=== PATIENT | female | born 1960 | race Caucasian/White ===

== ENCOUNTER 2017-05-16 20:40 | Emergency (ER) | payer OTHER ==
[2017-05-16] MEDS ORDERED: ONDANSETRON 4 MG/2 ML VIAL IVP STA ×2 (21:19→22:44)
[2017-05-16 21:24] LABS: BASOPHILS # (AUTO) 0.1 10^3/uL (0.0-0.1); BASOPHILS % (AUTO) 0.6 %; EOSINOPHILS % (AUTO) 0.2 %; HGB - HEMOGLOBIN 14.2 g/dL (12.0-16.0); LYMPHOCYTES % (AUTO) 10.3 %; MEAN CORPUSCULAR HEMOGLOBIN 28.6 pg (27.0-31.0); MEAN CORPUSCULAR HGB CONC 32.8 g/dL (32.0-36.0); MEAN CORPUSCULAR VOLUME 87.2 fL (81.0-99.0); MEAN PLATELET VOLUME 8.7 fL (7.9-10.8); MONOCYTES # (AUTO) 0.6 10^3/uL (0.0-1.0); MONOCYTES % (AUTO) 5.6 %; NEUTROPHILS # (AUTO) 8.2 10^3/uL (1.5-6.6); NEUTROPHILS % (AUTO) 83.3 %; PLT - PLATELET COUNT 233 10^3/uL (130-450); RED BLOOD COUNT 4.96 10^6/uL (4.20-5.40); RED CELL DISTRIBUTION WIDTH 14.2 % (12.0-15.0); WHITE BLOOD COUNT 9.8 x10^3/uL (4.8-10.8)
[2017-05-16 21:37] LABS: ALBUMIN 4.9 g/dL (3.2-5.5); BILIRUBIN,TOTAL 0.7 mg/dL (0.2-1.0); CALCIUM 9.3 mg/dL (8.5-10.3); CREATININE 0.6 mg/dL (0.4-1.0); TOTAL PROTEIN 7.3 g/dL (6.7-8.2)
[2017-05-16 21:38] LABS: BILIRUBIN,URINE NEGATIVE (NEGATIVE); GLUCOSE, URINE (UA) NEGATIVE (NEGATIVE); KETONES,URINE (UA) 40 mg/dL (NEGATIVE); LEUKOCYTE ESTERASE, URINE TRACE (NEGATIVE); NITRITE,URINE NEGATIVE (NEGATIVE); OCCULT BLOOD,URINE NEGATIVE (NEGATIVE); PH,URINE 7.5 PH (5.0-7.5); PROTEIN,URINE NEGATIVE (NEGATIVE); UROBILINOGEN,URINE 0.2 (NORMAL) E.U./dL (NORMAL)
[2017-05-16 21:39] LABS: CLARITY,URINE CLEAR (CLEAR)
[2017-05-16 21:47] LABS: BACTERIA,URINE None Seen /HPF (None Seen); RBC,URINE 0-5 /HPF (0-5); SQUAMOUS EPITHELIAL CELL,UR FEW Squamous (<= Few)
[2017-05-16] MEDS ORDERED: SODIUM CHLORIDE 0.9% 1,000 ML IV ONE (22:21)
[2017-05-16] MEDS ORDERED: MORPHINE 2 MG/ML CARPUJECT IVP STA (22:21)
[2017-05-16] MEDS ORDERED: IOPAMIDOL-300 100 ML VIAL ONE (22:32)
[2017-05-16] MEDS ORDERED: IOPAMIDOL-300 100 ML VIAL IVP ONE (22:48)
--- NOTE | 2017-05-16 23:27 | CT Report ---
EXAM: CT ABDOMEN AND PELVIS EXAM DATE: 05/16/2017 11:02 PM. CLINICAL HISTORY: Epigastric and ruq pain, . COMPARISONS: None. TECHNIQUE: Routine helical CT imaging was performed through the abdomen and pelvis. IV contrast: 100M L ISOVUE 300. Enteric contrast: No. Reconstructions: Coronal and sagittal. In accordance with CT protocol optimization, one or more of the following dose reduction techniques w ere utilized for this exam: automated exposure control, adjustment of mA and/or KV based on patient s ize, or use of iterative reconstructive technique. FINDINGS: Lung Bases: Unremarkable. Liver: Several hypodensities scattered throughout the liver measuring up to 1 cm. Gallbladder/Bile Ducts: Unremarkable. Spleen: Normal. Pancreas: Normal. Adrenal Glands: Normal. Kidneys: There is a 1.3 cm right renal cyst with a central slightly irregular septation. The cyst dem onstrates an attenuation value of 83 Hounsfield units. Left kidney is normal. No hydronephrosis. Peritoneal Cavity/Bowel: Normal. No free fluid, free air or adenopathy. No masses or acute inflammato ry process. There is a large volume of stool throughout the colon. No small bowel obstruction. No elizabeth e air or fluid collections. Pelvic Organs: There is a heterogeneous 9.5 x 10.1 x 10.5 cm midline pelvic mass. The mass contains p eripheral septations and calcifications. No normal uterus visualized. There is a right adnexal mass m easuring 5.5 x 2.9 cm. No fluid collections. No pelvic lymphadenopathy. The urinary bladder is unrema rkable. Vasculature: No aneurysms or other significant abnormality. Bones: No significant abnormality. Other: None. IMPRESSION: 1. Solid-appearing, heterogeneous pelvic masses possibly secondary to uterine fibroids. No normal te-moak debbie or ovaries visualized. Correlation with pelvic ultrasound for further characterization is recomme nded. 2. Increased stool burden throughout colon suggesting constipation. 3. Complex right renal cyst, sonographic correlation recommended. This may be performed at time of pe lvic ultrasound. 4. No right upper quadrant inflammatory changes. [facility] Referring Provider Line: [phone] SITE ID: [id number]
[2017-05-16 23:31] VITALS: BP 125/70
[2017-05-16] MEDS ORDERED: ONDANSETRON ODT 4 MG Prepack 2 TL STA (23:43)
[2017-05-16] MEDS ORDERED: oxyCODONE/ACET 5/325 Prepack 4 PO STA (23:43)
[2017-05-16] MEDS ORDERED: DICYCLOMINE 10 MG CAPSULE PO STA (23:43)
--- NOTE | 2017-05-16 23:43 | ED Physician Documentation ---
PD HPI NVD - Stated complaint Stated Complaint: VOMITING/CHILLS - Chief complaint Chief Complaint: Abd Pain - History obtained from History obtained from: Patient, Family - History of Present Illness Timing - onset: Today Timing - details: Gradual onset, Still present Associated symptoms: Abdominal pain Contributing factors: No: Sick contact, Bad food, Travel, Recent antibiotics Similar symptoms before: Has not had sx before Recently seen: Not recently seen - Additonal information Additional information: Patient is a 57 year old female who is presenting to the emergency department for abdominal pain, nausea, vomiting. 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 patient stated that it was sharp epigastric and right upper quadrant pain. patient reports that she has been unable to keep anything down all day. 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 Review of Systems Constitutional: reports: Fever, Chills Eyes: reports: Reviewed and negative Ears: reports: Reviewed and negative Nose: denies: Rhinorrhea / runny nose, Congestion Throat: denies: Sore throat Cardiac: denies: Chest pain / pressure, Palpitations Respiratory: denies: Cough, Wheezing GI: reports: Abdominal Pain, Nausea, Vomiting, Diarrhea : denies: Dysuria, Frequency, Hesitancy Skin: denies: Rash Musculoskeletal: denies: Back pain Neurologic: reports: Generalized weakness. denies: Focal weakness, Numbness Immunocompromised: denies: Immunocompromised PD PAST MEDICAL HISTORY - Past Medical History Past Medical History: Yes Neuro: Headache/migraine GI: Ulcers - Past Surgical History Past Surgical History: Yes HEENT: Tonsil/Adenoidectomy - Present Medications Home Medications: Ambulatory Orders Medication Instructions Recorded Confirmed Ascorbic Acid [Vitamin C] 1 tab PO DAILY 05/16/17 05/16/17 Dicyclomine [Bentyl] 10 mg PO QID #14 capsule 05/16/17 Ondansetron Odt [Zofran] 4 mg TL Q6H PRN #14 tablet 05/16/17 - Allergies Allergies/Adverse Reactions: Allergies Allergy/AdvReac Type Severity Reaction Status Date / Time No Known Drug Allergies Allergy Verified 05/16/17 21:00 - Social History Does the pt smoke?: No Smoking Status: Never smoker Does the pt drink ETOH?: Yes Does the pt have substance abuse?: No - POLST Patient has POLST: No PD ED PE NORMAL - Vitals Vital signs reviewed: Yes - General General: Alert and oriented X 3 - HEENT HEENT: Atraumatic, PERRL - Neck Neck: Supple, no meningeal sign - Cardiac Cardiac: RRR, No murmur - Respiratory Respiratory: No respiratory distress - Derm Derm: Normal color, Warm and dry, No rash - Extremities Extremities: No deformity, No edema - Neuro Neuro: Alert and oriented X 3, No motor deficit, No sensory deficit, Normal speech - Psych Psych: Normal mood PD ED PE EXPANDED - General General: In Pain - HEENT HEENT: Dry mucous membranes - Abdomen Abdomen: Tender to palpation, Guarding, RUQ, Epigastric, Generalized/diffuse. No: Rebound Results - Vitals Vitals: Vital Signs - 24 hr 05/16/17 05/16/17 20:51 23:29 Temperature 36.9 C 36.7 C Heart Rate 60 53 L Respiratory 18 18 Rate Blood Pressure 133/94 H 125/70 O2 Saturation 100 98 Oxygen O2 Source Room air - Labs Labs: Laboratory Tests 05/16/17 05/16/17 05/16/17 21:15 21:15 21:30 WBC 9.8 RBC 4.96 Hgb 14.2 Hct 43.3 MCV 87.2 MCH 28.6 MCHC 32.8 RDW 14.2 Plt Count 233 MPV 8.7 Neut # 8.2 H Lymph # 1.0 L [place] # 0.6 Eos # 0.0 Baso # 0.1 Absolute Nucleated RBC 0.00 Nucleated RBC % 0.0 Sodium 134 L Potassium 3.2 L Chloride 97 L Carbon Dioxide 23 Anion Gap 14.0 H BUN 10 Creatinine 0.6 Estimated GFR (MDRD) 102 Glucose 146 H Calcium 9.3 Total Bilirubin 0.7 AST 25 ALT 25 Alkaline Phosphatase 37 L Total Protein 7.3 Albumin 4.9 Globulin 2.4 Albumin/Globulin Ratio 2.0 Lipase 22 Urine Color YELLOW Urine Clarity CLEAR Urine pH 7.5 Ur Specific [place] 1.010 Urine Protein NEGATIVE Urine Glucose (UA) NEGATIVE Urine Ketones 40 H Urine Occult Blood NEGATIVE Urine Nitrite NEGATIVE Urine Bilirubin NEGATIVE Urine Urobilinogen 0.2 (NORMAL) Ur Leukocyte Esterase TRACE H Urine RBC 0-5 Urine WBC 6-10 H Ur Squamous Epith Cells FEW Squamous Urine Bacteria None Seen Ur Microscopic Review INDICATED Urine Culture Comments INDICATED - Rads (name of study) ct abdomen and pelvis Radiology: Final report received (acute intraabdominal pathology) PD MEDICAL DECISION MAKING - ED course Complexity details: reviewed old records, reviewed results, re-evaluated patient , considered differential, d/w patient, d/w family ED course: patient was seen and examined at bedside. IV access was gained and labs were drawn. patient was treated with iv fluids, zofran and morphine for pain. Imaging was ordered due to the severity of patient's symptoms. When patient returned from imaging the results were reviewed. there was no acute significant abnormality. patient and family were made aware of the findings and follow up instructions. patient required no further work up and was stable for discharge with outpatiennt follow up. Departure - Departure Disposition: Home, Self Care Clinical Impression: Gastroenteritis Condition: Stable Instructions: ED Gastroenteritis Viral Follow-Up: Karri York MD [Primary Care Provider] - Within 3 Days Prescriptions: Dicyclomine [Bentyl] 10 mg PO QID #14 capsule Ondansetron Odt [Zofran] 4 mg TL Q6H PRN #14 tablet PRN Reason: Nausea / Vomiting Comments: Your diagnostics today are within normal limits. It is likely viral in nature and should get better over the next few days. The most important thing is to stay hydrated. You should double your fluid intake and include gatorade or other electrolyte solution. You should follow up with your doctor if your symptoms persist through the weekend. Forms: Activity restrictions Discharge Date/Time: 05/17/17 00:07
== END 2017-05-17 00:07 | disposition home or self-care (01) ==
LOC: ED 20:40
DX: K52.9 Noninfective gastroenteritis and colitis, unspecified (principal); Z87.11 Personal history of peptic ulcer disease
CPT/HCPCS: 74177; 80053; 81001; 81003; 83690; 85025; 87086; 99283

== ENCOUNTER 2017-05-17 17:37 | Observation (INO) | payer OTHER ==
--- NOTE | 2017-05-17 17:51 | ED Physician Documentation ---
PD HPI NVD - Stated complaint Stated Complaint: ABD PX/VOM - Chief complaint Chief Complaint: Abd Pain - History obtained from History obtained from: Patient, Family (spouse) - History of Present Illness Timing - onset: How many days ago (3) Timing - duration: Days (3) Timing - details: Abrupt onset, Still present, Waxing and waning Associated symptoms: Abdominal pain. No: Fever, Hematemesis, Melena Contributing factors: No: Sick contact, Bad food, Travel, Recent antibiotics, Alcohol use Worsened by: Eating (even small sips of water causes nausea and increased pain today.) Similar symptoms before: Has not had sx before Recently seen: Emergency Dept (seen yesterday in ED for this and was improved with IV fluids and meds, had normal labs and Abd CT. However pain was still there some and increased with oral intake soon after discharged home.) Review of Systems Constitutional: denies: Fever, Chills, Myalgias Nose: denies: Rhinorrhea / runny nose, Congestion Throat: denies: Sore throat Cardiac: denies: Chest pain / pressure Respiratory: denies: Dyspnea, Cough GI: reports: Abdominal Pain (upper abd/RUQ area), Nausea, Vomiting. denies: Abdominal Swelling, Constipation, Diarrhea, Hematemesis, Bloody / black stool : denies: Dysuria, Frequency Skin: denies: Rash, Lesions Musculoskeletal: denies: Neck pain, Back pain, Extremity pain Neurologic: reports: Generalized weakness. denies: Focal weakness, Numbness, Near syncope Psychiatric: denies: Depressed Endocrine: denies: Polydypsia, Polyuria, Weight loss, Weight gain, Easy bruising / bleeding Immunocompromised: denies: Immunocompromised PD PAST MEDICAL HISTORY - Past Medical History Neuro: Headache/migraine GI: Ulcers - Past Surgical History Past Surgical History: Yes HEENT: Tonsil/Adenoidectomy - Present Medications Home Medications: Ambulatory Orders Medication Instructions Recorded Confirmed Ascorbic Acid [Vitamin C] 1 tab PO DAILY 05/16/17 05/17/17 Dicyclomine [Bentyl] 10 mg PO QID #14 capsule 05/16/17 05/17/17 Ondansetron Odt [Zofran] 4 mg TL Q6H PRN #14 tablet 05/16/17 05/17/17 - Allergies Allergies/Adverse Reactions: Allergies Allergy/AdvReac Type Severity Reaction Status Date / Time No Known Drug Allergies Allergy Verified 05/17/17 17:45 - Social History Does the pt smoke?: No Smoking Status: Never smoker Does the pt drink ETOH?: Yes Does the pt have substance abuse?: No - Family History Family history: reports: Non contributory - POLST Patient has POLST: No PD ED PE NORMAL - Vitals Vital signs reviewed: Yes - General General: Alert and oriented X 3, Well developed/nourished - HEENT HEENT: PERRL, EOMI (nonicteric), Pharynx benign. No: Moist mucous membranes - Neck Neck: Supple, no meningeal sign, No adenopathy - Cardiac Cardiac: RRR, No murmur - Respiratory Respiratory: Clear bilaterally - Abdomen Abdomen: Soft, Non distended, No organomegaly, Other (tender with guarding RUQ area. Decreased bowel sounds. ) - Female Female : Deferred - Rectal Rectal: Deferred - Back Back: No CVA TTP - Derm Derm: Normal color, Warm and dry, No rash - Extremities Extremities: No deformity, No tenderness to palpate, Normal ROM s pain, No edema , No calf tenderness / cord - Neuro Neuro: Alert and oriented X 3, No motor deficit, No sensory deficit Results - Vitals Vitals: Vital Signs - 24 hr 05/17/17 05/17/17 05/17/17 17:41 19:10 19:43 Temperature 37.0 C Heart Rate 57 L 54 L 88 Respiratory 16 16 18 Rate Blood Pressure 144/69 H 134/87 H 147/82 H O2 Saturation 100 100 99 05/17/17 05/17/17 05/17/17 20:32 22:06 23:26 Temperature Heart Rate 72 65 66 Respiratory 16 16 16 Rate Blood Pressure 110/74 109/82 H 106/66 O2 Saturation 97 98 95 05/17/17 23:41 Temperature Heart Rate 75 Respiratory 16 Rate Blood Pressure 105/65 O2 Saturation 99 Oxygen O2 Source Room air - Labs Labs: Laboratory Tests 05/17/17 05/17/17 05/17/17 17:50 20:32 20:32 WBC 7.5 RBC 4.37 Hgb 12.5 Hct 37.9 MCV 86.7 MCH 28.7 MCHC 33.1 RDW 14.0 Plt Count 187 MPV 8.5 Neut # 6.1 Lymph # 0.9 L [place] # 0.5 Eos # 0.0 Baso # 0.0 Absolute Nucleated RBC 0.00 Nucleated RBC % 0.0 Sodium 136 Potassium 3.7 Chloride 103 Carbon Dioxide 22 Anion Gap 11.0 BUN 8 Creatinine 0.5 Estimated GFR (MDRD) 126 Glucose 117 H POC Whole Bld Glucose 94 Calcium 8.6 Total Bilirubin 0.6 AST 18 ALT 21 Alkaline Phosphatase 28 L Troponin I Total Protein 6.1 L Albumin 4.0 Globulin 2.1 Albumin/Globulin Ratio 1.9 Lipase 33 05/17/17 20:32 WBC RBC Hgb Hct MCV MCH MCHC RDW Plt Count MPV Neut # Lymph # [place] # Eos # Baso # Absolute Nucleated RBC Nucleated RBC % Sodium Potassium Chloride Carbon Dioxide Anion Gap BUN Creatinine Estimated GFR (MDRD) Glucose POC Whole Bld Glucose Calcium Total Bilirubin AST ALT Alkaline Phosphatase Troponin I < 0.04 Total Protein Albumin Globulin Albumin/Globulin Ratio Lipase - Rads (name of study) RUQ U/S Radiology: Prelim report reviewed (no acute process seen. Normal gallbladder. ) PD MEDICAL DECISION MAKING - ED course Complexity details: reviewed results, re-evaluated patient (Lessened pain and nausea, feeling much better than the prior 2 days. However, pain worse again with PO intake of just some water and crackers. Presume now gastritis with whatever initial issue was (viral GE or such). ), considered differential, d/w patient Departure - Departure Disposition: ED Place in Observation Clinical Impression: Abdominal pain Qualifiers: Abdominal location: upper abdomen, unspecified Qualified Code(s): R10.10 - Upper abdominal pain, unspecified Vomiting Qualifiers: Vomiting type: bilious vomiting Nausea presence: with nausea Qualified Code(s) : R11.14 - Bilious vomiting Gastritis Qualifiers: Gastritis type: other gastritis Chronicity: acute Gastritis bleeding: without bleeding Qualified Code(s): K29.00 - Acute gastritis without bleeding Condition: Stable Record reviewed to determine appropriate education?: Yes
[2017-05-17] MEDS ORDERED: HYDROmorphone 1 MG/ML SYRINGE IVP STA ×2 (18:11→19:26)
[2017-05-17] MEDS ORDERED: ONDANSETRON 4 MG/2 ML VIAL IVP STA (18:11)
[2017-05-17] MEDS ORDERED: SODIUM CHLORIDE 0.9% 1,000 ML IV ONE ×2 (18:11→19:26)
[2017-05-17] MEDS ORDERED: FAMOTIDINE 20 MG/50 ML 50 ML IV ONE (18:12)
[2017-05-17] MEDS ORDERED: ACETAMINOPHEN 1,000 MG/100 ML 100 ML IV STA (18:12)
[2017-05-17] MEDS ORDERED: KETOROLAC 60 MG/2 ML VIAL IVP STA (19:26)
[2017-05-17 20:37] LABS: BASOPHILS % (AUTO) 0.6 %; EOSINOPHILS % (AUTO) 0.2 %; HGB - HEMOGLOBIN 12.5 g/dL (12.0-16.0); LYMPHOCYTES # (AUTO) 0.9 10^3/uL (1.5-3.5); LYMPHOCYTES % (AUTO) 12.4 %; MEAN CORPUSCULAR HEMOGLOBIN 28.7 pg (27.0-31.0); MEAN CORPUSCULAR HGB CONC 33.1 g/dL (32.0-36.0); MEAN CORPUSCULAR VOLUME 86.7 fL (81.0-99.0); MEAN PLATELET VOLUME 8.5 fL (7.9-10.8); MONOCYTES # (AUTO) 0.5 10^3/uL (0.0-1.0); MONOCYTES % (AUTO) 6.6 %; NEUTROPHILS # (AUTO) 6.1 10^3/uL (1.5-6.6); NEUTROPHILS % (AUTO) 80.2 %; PLT - PLATELET COUNT 187 10^3/uL (130-450); RED BLOOD COUNT 4.37 10^6/uL (4.20-5.40); WHITE BLOOD COUNT 7.5 x10^3/uL (4.8-10.8)
[2017-05-17 20:51] LABS: ALBUMIN/GLOBULIN RATIO 1.9 (1.0-2.2); BILIRUBIN,TOTAL 0.6 mg/dL (0.2-1.0); CALCIUM 8.6 mg/dL (8.5-10.3); CREATININE 0.5 mg/dL (0.4-1.0); TOTAL PROTEIN 6.1 g/dL (6.7-8.2)
[2017-05-17] MEDS ORDERED: MAG HYDROX/AL HYDROX/SIMETH 30 ML UDC PO STA ×2 (20:57→22:09)
--- NOTE | 2017-05-17 20:59 | Ultrasound Report ---
EXAM: ABDOMEN ULTRASOUND LIMITED, RUQ EXAM DATE: 05/17/2017 08:21 PM. CLINICAL HISTORY: Upper/right abdominal pain since Friday . COMPARISON: CT abdomen and pelvis 05/16/2017. TECHNIQUE: Real-time scanning was performed with static images obtained. FINDINGS: Liver: Liver cysts. In the left hepatic lobe superior aspect there is a 7 mm liver cyst and a 1.3 cm liver cyst. In the right hepatic lobe superior aspect, there is a 1 cm liver cyst. Liver echotexture appears within normal limits. Liver length 14.7 cm. Main portal vein flow: Hepatopetal. Gallbladder: Gallbladder wall thickness measures 1.9 mm, within normal limits. No gallstones are seen . No sludge. Negative sonographic Munoz's sign, the patient is on pain medication. No pericholecysti c fluid. The gallbladder is distended measuring 10 cm in length, within normal limits. Biliary System: Common duct measures 6.5 mm, upper limits of normal, tapers distally measuring 3.3 mm . No intrahepatic or extrahepatic ductal dilatation. Other: The right kidney measures 9.2 cm in length and there is no hydronephrosis. IMPRESSION: 1. No cholelithiasis. No evidence for acute cholecystitis. Common duct measures upper limits of shelbi l at 6.5 mm, tapers distally. 2. Small liver cysts. [facility] Referring Provider Line: [phone] SITE ID: [id number]
[2017-05-17] MEDS ORDERED: LIDOCAINE VISCOUS 2% 15 ML UDC MM STA (22:09)
[2017-05-17] MEDS ORDERED: D5NS W/20 MEQ KCL 1,000 ML IV SCH (23:45)
[2017-05-17] MEDS ORDERED: ZOLPIDEM 5 MG TABLET PO PRN (23:46)
[2017-05-17] MEDS ORDERED: HYDROmorphone 1 MG/ML SYRINGE IVP PRN (23:46)
[2017-05-17] MEDS ORDERED: PROCHLORPERAZINE 10 MG/2 ML VIAL IVP PRN (23:46)
[2017-05-17] MEDS ORDERED: ACETAMINOPHEN 1,000 MG/100 ML 100 ML IV PRN (23:49)
[2017-05-18] MEDS: SODIUM CHLORIDE FLUSH 0.9% 10 ML SYRINGE IVP PRN ×2 (01:33→09:21)
[2017-05-18] MEDS: PANTOPRAZOLE 40 MG VIAL IV SCH ×2 (01:40→09:21)
[2017-05-18 05:44] LABS: CALCIUM 7.7 mg/dL (8.5-10.3); CREATININE 0.4 mg/dL (0.4-1.0)
--- NOTE | 2017-05-18 06:22 | HISTORY & PHYSICAL EXAMINATION ---
DATE OF SERVICE: Physician: Sara Diaz MD DATE OF ADMISSION: 05/17/2017 HISTORY OF PRESENT ILLNESS: This is a 57-year-old white female with a history of migraines and a remote tonsillectomy. She takes no routine prescription medications. The patient developed nausea and vomiting as well as mild abdominal pain 2-3 days ago and presented to the emergency room here yesterday and laboratories and workup were negative, and she was sent home with Zofran. She continued to have nausea and vomiting despite taking this medication and also developed severe right upper quadrant pain and radiating across the epigastrium and therefore presented to the emergency room. Here she required multiple doses of IV pain medications, GI cocktail, IV antiemetics, and even when symptoms settled down, as soon as she took even sips of fluid she had recurrent vomiting. There has been no fever, no diarrhea, or hematemesis, melena, or bright red blood per rectum. She is being brought in now for gastritis, cyclical vomiting, as well as pain control and iv rehydration. PAST MEDICAL HISTORY: Migraines. ALLERGIES: NONE. MEDICATIONS AT HOME: 1. Vitamin C. 2. Bentyl p.r.n., new prescription. 3. Zofran p.r.n., new prescription. SOCIAL HISTORY: The patient is a nonsmoker who never smoked and drinks alcohol socially, denies illicit drug use. FAMILY HISTORY: No inherited diseases. REVIEW OF SYSTEMS: A comprehensive review of systems was performed and the positives are in above. PHYSICAL EXAMINATION GENERAL: White female supine in bed. Appears somewhat fatigued. She is in no distress currently. VITAL SIGNS: Blood pressure 140/70, heart rate 68 in sinus rhythm, afebrile, oxygen saturation 100%. HEENT: Dry oral mucosa and fatigued appearance. NECK: No JVD. No carotid bruits. No thyromegaly. No lymphadenopathy. CHEST: Clear. HEART: Normal. ABDOMEN: Soft but with decreased bowel sounds, nontender to light palpation. No guarding or rebound. EXTREMITIES: Showed no clubbing, cyanosis, or edema. No calf tenderness. NEUROLOGIC: Intact. LABORATORY: Normal electrolytes. Normal BUN and creatinine. Normal liver test. Troponin not detectable. Normal lipase. No INR was done. Normal CBC. IMAGING: An abdominal ultrasound was done, which showed normal gallbladder and duct and no evidence of stones and small liver cysts present. A CT of the abdomen had been done yesterday, which was unremarkable by report. No EKG was done. IMPRESSION/DIAGNOSES: 1. Probable viral gastritis. 2. Vomiting. 3. Dehydration. PLAN: 1. Place the patient in Observation status for IV rehydration as well as IV pain meds, IV antiemetics, and bowel rest. Slow advancement to clear liquid diet will be attempted tomorrow. 2. Deep venous thrombosis prophylaxis: SCDs. 3. CODE STATUS: FULL CODE. 4. Attestation: The patient is expected to be discharged or transferred to another facility within 96 hours: Yes. TD: 05/18/2017 07:22 SUMEET
[2017-05-18] MEDS: SODIUM CHLORIDE FLUSH 0.9% 10 ML SYRINGE IVP SCH ×2 (06:36→13:05)
[2017-05-18] MEDS: GI COCKTAIL 120 ML BOTTLE PO SCH ×2 (06:47→14:15)
--- NOTE | 2017-05-18 07:41 | DISCHARGE SUMMARY ---
Discharge Summary Admit Date: 05/17/17 Discharge Date: 05/18/17 Discharging Provider: LORENA Morgan Primary Care Provider: Karri York Code Status: Attempt Resuscitation Condition at Discharge: Good Discharge Disposition: Home, Self Care - DIAGNOSES Admission Diagnoses: Gastritis, unspecified, without bleeding (K29.70) Vomiting, unspecified (R11.10) Discharge Diagnoses with Status of Each Condition: Gastritis (K29.70) Almost completely resolved at the time of discharge. Vomiting (R11.10) Resolved. Liver cyst (K76.89) ongoing, stable and recommend follow up. Insomnia (G47.00) chronic, sent home with antiemetics. Dehydration, moderate (E86.0) resolved. - HPI History of Present Illness: Elizabeth Beyer is a well-appearing 57 year old white female with a past medical history of migraines and a past surgical history of a tonsillectomy. She presented to the ED with nausea, vomiting, and mid-abdominal pain that started 2 -3 days earlier. She was in our ED yesterday with the same symptoms and sent home with a prescription for Zofran. Today her nausea and vomiting continued accompanied by more severe RUQ abdominal pain that radiated across the epigastrum and therefore came back to the ED. Once in the ED, she received pain medications, a GI cocktail, IVFs, IV antiemetics and still continued to have vomiting. She denies a fever, diarrhea, hematemesis, melena, or bright red blood per rectum. She will be observed overnight for gastritis, treatment of nausea, vomiting and dehydration. - HOSPITAL COURSE Hospital Course: Patient was watched overnight and had resolved vomiting. She was tolerating a general diet and had a bowel movement. She was found to have a new liver cyst and was recommended to follow up with her PCP. She was transported via private car in stable condition and a work excuse note was given as per her request. - ALLERGIES Allergies/Adverse Reactions: Allergies Allergy/AdvReac Type Severity Reaction Status Date / Time No Known Drug Allergies Allergy Verified 05/17/17 17:45 - MEDICATIONS Home Medications: Ambulatory Orders Medication Instructions Recorded Confirmed Ascorbic Acid [Vitamin C] 1 tab PO DAILY 05/16/17 05/17/17 Dicyclomine [Bentyl] 10 mg PO QID #14 capsule 05/16/17 05/17/17 Ondansetron Odt [Zofran Odt] 4 mg TL Q6H PRN #14 tablet 05/16/17 05/17/17 Cholecalciferol (Vitamin D3) 2,000 unit PO DAILY 05/18/17 05/18/17 [Vitamin D3] Melatonin 3 mg PO QPM PRN 05/18/17 05/18/17 Temazepam 7.5 mg PO QPM #15 capsule 05/18/17 - PHYSICAL EXAM AT DISCHARGE General Appearance: positive: No acute distress, Alert Eyes Bilateral: positive: Normal inspection, PERRL ENT: positive: ENT inspection nml, Pharynx nml, No signs of dehydration Neck: positive: Nml inspection, Thyroid nml, No JVD, Trachea midline Respiratory: positive: Chest non-tender, No respiratory distress, Breath sounds nml Cardiovascular: positive: Regular rate & rhythm, No murmur, No gallop Peripheral Pulses: positive: 2+ Abdomen: positive: Non-tender, No organomegaly, Nml bowel sounds, Tenderness, Guarding Back: positive: Nml inspection Skin: positive: Color nml, No rash, Warm, Dry Extremities: positive: Non-tender, Full ROM, Nml appearance, No pedal edema Neurologic/Psychiatric: positive: Oriented x3, CN's nml (2-12), Motor nml, Sensation nml, Mood/affect nml Reflexes: Bicep (R): 3+, Bicep (L): 3+ - LABS Result Diagrams: 05/17/17 20:32 05/18/17 05:12 - DIAGNOSTIC IMAGING Diagnostic Imaging Results: Final report reviewed Diagnostic Imaging Results Comments: Abdomen US 05/17/17: FINDINGS: Liver: Liver cysts. In the left hepatic lobe superior aspect there is a 7 mm liver cyst and a 1.3 cm liver cyst. In the right hepatic lobe superior aspect, there is a 1 cm liver cyst. Liver echotexture appears within normal limits. Liver length 14.7 cm. Main portal vein flow: Hepatopetal. Gallbladder: Gallbladder wall thickness measures 1.9 mm, within normal limits. No gallstones are seen. No sludge. Negative sonographic Munoz's sign, the patient is on pain medication. No pericholecystic fluid. The gallbladder is distended measuring 10 cm in length, within normal limits. Biliary System: Common duct measures 6.5 mm, upper limits of normal, tapers distally measuring 3.3 mm. No intrahepatic or extrahepatic ductal dilatation. Other: The right kidney measures 9.2 cm in length and there is no hydronephrosis. IMPRESSION: 1. No cholelithiasis. No evidence for acute cholecystitis. Common duct measures upper limits of normal at 6.5 mm, tapers distally. 2. Small liver cysts. Abdominal/pelvis CT 05/16/17: FINDINGS: Lung Bases: Unremarkable. Liver: Several hypodensities scattered throughout the liver measuring up to 1 cm. Gallbladder/Bile Ducts: Unremarkable. Spleen: Normal. Pancreas: Normal. Adrenal Glands: Normal. Kidneys: There is a 1.3 cm right renal cyst with a central slightly irregular septation. The cyst demonstrates an attenuation value of 83 Hounsfield units. Left kidney is normal. No hydronephrosis. Peritoneal Cavity/Bowel: Normal. No free fluid, free air or adenopathy. No masses or acute inflammatory process. There is a large volume of stool throughout the colon. No small bowel obstruction. No free air or fluid collections. Pelvic Organs: There is a heterogeneous 9.5 x 10.1 x 10.5 cm midline pelvic mass. The mass contains peripheral septations and calcifications. No normal uterus visualized. There is a right adnexal mass measuring 5.5 x 2.9 cm. No fluid collections. No pelvic lymphadenopathy. The urinary bladder is unremarkable. Vasculature: No aneurysms or other significant abnormality. Bones: No significant abnormality. Other: None. IMPRESSION: 1. Solid-appearing, heterogeneous pelvic masses possibly secondary to uterine fibroids. No normal uterus or ovaries visualized. Correlation with pelvic ultrasound for further characterization is recommended. 2. Increased stool burden throughout colon suggesting constipation. 3. Complex right renal cyst, sonographic correlation recommended. This may be performed at time of pelvic ultrasound. 4. No right upper quadrant inflammatory changes. - FOLLOW UP Follow Up: Disposition: 01 Home, Self Care Condition: Good Prescriptions: Temazepam 7.5 mg PO QPM #15 capsule Diet: Regular Shower Restrictions: No Driving Restrictions: No Weight Bearing: Full Weight Additional Instructions or Follow Up instructions: You came to the hospital after experiencing severe abdominal pain that became better with bowel rest, IV fluids and electrolyte replacement. The most likely diagnosis is viral gastritis since you did not have an elevated WBC count and based on your symptoms. You were given a copy of your scans which were negative for appendicitis, cholelithiasis, or suspicion of infection. You did have a few liver cysts that will need to be watched: Patients with large (greater than or equal to 4 cm in diameter), asymptomatic, simple cysts should be monitored with periodic ultrasonography. For these patients, we suggest an initial follow-up study in three months after the diagnosis, and then again at 6 to 12 months. Further monitoring is usually unnecessary if the cyst remains unchanged for two to three years. Your largest cyst was 1.3cm. You have normal liver blood flow, (hepatopetal). Please rest at home and intentionally drink when you are the least bit thirsty. Please stay off work for the first part of this week, or after seeing your PCP. See your PCP within a week of this hospital stay. - TIME SPENT Time Spent in Discharge (Minutes): 50
[2017-05-18] MEDS ORDERED: POTASSIUM CHLORIDE INJ 40 MEQ in SODIUM CHLORIDE 0.9% 480 ML IV ONE (07:42)
[2017-05-18 08:51] LABS: HB2 TOTAL 12.4 g/dL; HEMOGLOBIN A1C 0.42 g/dL; HEMOGLOBIN A1C % 5.3 % (4.6-6.2)
[2017-05-18] MEDS: DICYCLOMINE 10 MG CAPSULE PO SCH ×3 (09:21→17:37)
[2017-05-18 16:47] VITALS: BP 107/69
[2017-05-18] MEDS ORDERED: BISACODYL 10 MG SUPP PR SCH (17:09)
[2017-05-18] MEDS ORDERED: TEMAZEPAM 7.5 MG CAPSULE PO SCH (18:00)
== END 2017-05-18 18:59 | disposition home or self-care (01) ==
LOC: ED 17:37 → OBS 23:46
PROVIDERS: ADMIT Internal Medicine; ATTEND Internal Medicine
DX: K29.00 Acute gastritis without bleeding (principal); E86.0 Dehydration; K76.89 Other specified diseases of liver; G47.00 Insomnia, unspecified; K52.9 Noninfective gastroenteritis and colitis, unspecified; Z87.11 Personal history of peptic ulcer disease
CPT/HCPCS: 36415; 74177; 76705; 80048; 80053; 81001; 83036; 83690; 84484; 85025; 87086; 96361; 96365; 96366; 96367; 96374; 96375; 96376; 99218; 99284; 99285; A9270; J0131; J1170; Q9967; 81003; 99283

== ENCOUNTER 2018-09-26 09:18 | Outpatient (CLI) | payer OTHER ==
--- NOTE | 2018-09-28 09:49 | Ultrasound Report ---
Reason: UNSPECIFIED ABDOMINAL PAIN Procedure Date: 09/26/2018 Accession Number: [id number] / [id number] Procedure: US - Abdomen Complete CPT Code: FULL RESULT: EXAM: ABDOMEN ULTRASOUND EXAM DATE: 09/26/2018 10:00 AM. CLINICAL HISTORY: Unspecified abdominal pain. Follow up hepatic and renals cysts. COMPARISON: Ultrasound 05/17/18, CT 05/16/18. TECHNIQUE: Real-time scanning was performed with static images obtained. FINDINGS: Liver: Normal in size and echotexture. Liver contains bilateral simple appearing cysts measuring up to 1.3 cm on the right and up to 1.3 cm on the left. Right lobe of the liver measures at least 15.3 cm. Main portal vein flow: Hepatopetal. Gallbladder: Normal. No stones, wall thickening, or sonographic Munoz's sign. Biliary System: Common bile duct measures 6 mm. No intrahepatic or extrahepatic ductal dilatation. Pancreas: Visualized portion is unremarkable. Kidneys: Right: Measures up to 10.3 cm longitudinally. There is a cyst in the inferior pole with punctate echogenic focus and no definite solid component. Please note that the April 2018 CT demonstrated a 1.4 x 1.2 cm hypodense structure in the mid pole; no corresponding cyst is identified on today's exam. Additionally, the ultrasound dated 05/17/2018 also did not demonstrate a corresponding cyst. While no clear corresponding solid mass is identified, image 97 demonstrates a questionable 1.9 x 1.8 cm corresponding solid appearing prominence, possibly artifactual. There is mild hydronephrosis. Left: 10.0 cm longitudinally. Minimal hydronephrosis. Spleen: 8.6 cm. Normal in size and echotexture. Aorta and Inferior Vena Cava: Unremarkable. Other: Trace right pleural effusion is noted. IMPRESSION: Absence of visualization of a clear sonographic correlate to a previously seen right renal midpole hypodense lesion as described. This warrants characterization of the right renal status by CT renal mass protocol with and without contrast. Minimal to mild hydronephrosis. Trace right pleural effusion. RADIA
== END 2018-09-26 09:19 | disposition home or self-care (01) ==
LOC: DI 09:18
PROVIDERS: ATTEND Internal Medicine
DX: R10.9 Unspecified abdominal pain (principal); N13.30 Unspecified hydronephrosis; J90 Pleural effusion, not elsewhere classified
CPT/HCPCS: 76700

== ENCOUNTER 2018-10-10 09:47 | Outpatient (CLI) | payer OTHER ==
[2018-10-10] MEDS ORDERED: IOVERSOL 320 100 ML VIAL IVP ONE ×2 (10:59→11:56)
--- NOTE | 2018-10-12 09:31 | CT Report ---
Reason: OTHER SPECIFIED DISORDERS OF KIDNEY AND URETER Procedure Date: 10/10/2018 Accession Number: [id number] / [id number] Procedure: CT - ABDOMEN W/WO CPT Code: FULL RESULT: EXAM: CT ABDOMEN WITHOUT AND WITH CONTRAST EXAM DATE: 10/10/2018 11:56 AM. HISTORY: Possible renal mass or cysts. Other specified disorders of kidney and ureter. COMPARISON: ABDOMEN COMPLETE 09/26/2018 9:37 AM. ABDOMEN/PELVIS W/ 05/16/2017 10:49 PM. TECHNIQUE: Routine helical CT imaging was performed through the abdomen before and after administration of IV contrast: 100 mL Optiray-320. Enteric contrast: No. Reconstruction: Coronal and sagittal. In accordance with CT protocol optimization, one or more of the following dose reduction techniques were utilized for this exam: automated exposure control, adjustment of mA and/or KV based on patient size, or use of iterative reconstructive technique. FINDINGS: Lung Bases: Unremarkable. Liver: Hepatic hypodensities remain too small to characterize. Gallbladder/Bile Ducts: Unremarkable. Spleen: Normal. Pancreas: Normal. No masses or ductal obstruction. Adrenal Glands: Normal. Kidneys: The right renal midpole mass now measures 1.5 x 1.3 cm and is seen on image 25 series 6 and image 34 series 11, solid mass and hypoenhancing compared to cortex. The left kidney is normal. There is no hydronephrosis on either side. Peritoneal Cavity/Bowel: Normal. No free fluid, free air or adenopathy. No masses or acute inflammatory process. Vasculature: No aneurysms or other significant abnormality. Bones: No significant abnormality. Other: None. IMPRESSION: Persistent solid right renal mass is suspicious for renal cell carcinoma, now measuring up to 1.5 cm. RADIA
== END 2018-10-10 09:48 | disposition home or self-care (01) ==
LOC: LAB 09:47 → DI 09:48
PROVIDERS: ATTEND Internal Medicine
DX: N28.89 Other specified disorders of kidney and ureter (principal)
CPT/HCPCS: 74170; Q9967

== ENCOUNTER 2018-11-26 10:08 | Outpatient (CLI) | payer OTHER ==
--- NOTE | 2018-11-27 11:18 | Mammography Report ---
Reason: SCREENING MAMMO Procedure Date: 11/26/2018 Accession Number: [id number] / [id number] Procedure: MGS - Screening Mammo Dig Bilat CPT Code: FULL RESULT: EXAM: Screening Mammo Dig Bilat DATE: 11/26/2018 10:33 AM CLINICAL HISTORY: Screening encounter. History of nulliparity and benign right breast biopsy. TECHNIQUE: (B) - Bilateral CC, laterally exaggerated CC, MLO views were obtained. COMPARISON: 12/22/2014 through 11/23/2013. PARENCHYMAL PATTERN: (A) - The breast(s) demonstrate(s) scattered fibroglandular densities. FINDINGS: A biopsy clip is again seen in the right breast. There are no suspicious masses, calcifications, or areas of distortion. IMPRESSION: Benign findings. BI-RADS category 2. RECOMMENDATION: (ANNUAL) - Recommend routine annual screening mammography. BI-RADS CATEGORY: (2) - Benign Findings. STANDARD QUALIFYING STATEMENTS: 1. This examination was reviewed with the aid of Computer-Aided Detection (CAD). 2. A negative or benign imaging report should not preclude biopsy if clinically suspicious findings are present. 3. Dense breasts may obscure an underlying neoplasm. 4. This examination was reviewed without the aid of 3D breast imaging (tomosynthesis).
== END 2018-11-26 10:09 | disposition home or self-care (01) ==
LOC: DI.S 10:08
DX: Z12.31 Encounter for screening mammogram for malignant neoplasm of breast (principal)
CPT/HCPCS: 77067

== ENCOUNTER 2019-06-28 10:53 | Outpatient (CLI) | payer OTHER ==
[2019-06-28] MEDS ORDERED: IOVERSOL 320 100 ML VIAL IVP ONE ×2 (11:08→12:15)
[2019-06-28 11:41] LABS: CREATININE 0.5 mg/dL (0.4-1.0)
--- NOTE | 2019-06-29 16:38 | CT Report ---
Reason: RENAL MASS Procedure Date: 06/28/2019 Accession Number: [id number] / [id number] Procedure: CT - ABDOMEN W/WO CPT Code: Final Report FULL RESULT: EXAM: CT ABDOMEN WITHOUT AND WITH CONTRAST EXAM DATE: 06/28/2019 12:10 PM. HISTORY: RENAL MASS. COMPARISON: ABDOMEN W/WO 10/10/2018 11:45 AM ABDOMEN COMPLETE 09/26/2018 9:37 AM ABDOMEN/PELVIS W/ 05/16/2017 10:49 PM. TECHNIQUE: Routine helical CT imaging was performed through the abdomen before and after administration of IV contrast: OPTIRAY 320. Enteric contrast: No. Reconstruction: Coronal and sagittal. In accordance with CT protocol optimization, one or more of the following dose reduction techniques were utilized for this exam: automated exposure control, adjustment of mA and/or KV based on patient size, or use of iterative reconstructive technique. FINDINGS: Lung Bases: Unremarkable. Liver: Scattered hepatic hypodensities are stable in size but remain too small to characterize. Gallbladder/Bile Ducts: Unremarkable. Spleen: Normal. Pancreas: Normal. No masses or ductal obstruction. Adrenal Glands: Normal. Kidneys: The known right renal midpole lesion is difficult to discern and best seen on the nephrographic phase, coronal image 32 series 14, axial image 28 series 6 and sagittal image 48 series 15. Accounting for differences in technique, there is no convincing interval growth compared to September 2018, maximal dimension of 1.5 cm when carefully reviewed in all 3 planes (1.5 x 1.5 x 1.5). Peritoneal Cavity/Bowel: Normal. No free fluid, free air or adenopathy. No masses or acute inflammatory process. The appendix is well visualized and normal. Vasculature: No aneurysms or other significant abnormality. Bones: No significant abnormality. Other: None. IMPRESSION: Stable subtle 1.5 cm right renal mass with enhancement. RADIA
== END 2019-06-28 10:54 | disposition home or self-care (01) ==
LOC: LAB 10:53 → DI 10:54
PROVIDERS: ATTEND Urology
DX: N28.89 Other specified disorders of kidney and ureter (principal)
CPT/HCPCS: 36415; 74170; 82565; 84520; Q9967

== ENCOUNTER 2019-11-10 15:19 | Outpatient (CLI) | payer OTHER ==
[2019-11-10 20:36] LABS: RHEUMATOID FACTOR NEGATIVE (Negative)
[2019-11-10 20:45] LABS: ALBUMIN 4.3 g/dL (3.2-5.5); ALBUMIN/GLOBULIN RATIO 1.8 (1.0-2.2); ALKALINE PHOSPHATASE 40 IU/L (42-121); ALT ALANINE AMINOTRANSFERASE 20 IU/L (10-60); AST ASPARTATE AMINOTRANSFERASE 22 IU/L (10-42); BILIRUBIN,TOTAL 0.3 mg/dL (0.2-1.0); BUN - BLOOD UREA NITROGEN 12 mg/dL (6-20); CALCIUM 9.1 mg/dL (8.5-10.3); CARBON DIOXIDE - CO2 26 mmol/L (21-32); CHLORIDE 102 mmol/L (101-111); CREATININE 0.8 mg/dL (0.4-1.0); GLUCOSE 103 mg/dL (70-100); SODIUM 136 mmol/L (135-145); TOTAL PROTEIN 6.7 g/dL (6.7-8.2)
[2019-11-10 20:48] LABS: CRP - C-REACTIVE PROTEIN < 1.0 mg/dL (0-1.0)
== END 2019-11-10 15:20 | disposition home or self-care (01) ==
LOC: LAB.S 15:19
PROVIDERS: ATTEND Nurse Practitioner Family
DX: M15.9 Polyosteoarthritis, unspecified (principal)
CPT/HCPCS: 36415; 80053; 85651; 86038; 86140; 86200; 86430

== ENCOUNTER 2022-12-09 08:23 | Outpatient (CLI) | payer OTHER ==
--- NOTE | 2022-12-09 09:41 | DEXA Report ---
PROCEDURE: Dexa Spine and/or Hip INDICATIONS: POST MENOPAUSAL TECHNIQUE: Dual energy x-ray absorptiometry (DXA) was performed on a [employer] System. Regions measur ed are the AP Spine, femoral neck, and if needed forearm. COMPARISON: None FINDINGS: Lumbar Spine: Bone Mineral Density 0.93 g/cm/cm,T score -2.2. Left Femoral Neck: Bone Mineral Density 0.87 g/cm/cm, T score -1.2. Left Hip: Bone Mineral Density 0.90 g/cm/cm,T score -0.8. (T score greater or equal to -1.0: NORMAL) (T score from -1.1 to -2.4: OSTEOPENIA) (T score less than or equal to -2.5 to: OSTEOPOROSIS) Impression: By WHO criteria, this patient has low bone density (osteopenia). Fracture risk is increased. Patients with diagnosis of osteoporosis or osteopenia should have regular bone mineral density assess ment. For those eligible for Medicare, routine testing is allowed once every 2 years. Testing frequ ency can be increased for patients who have rapidly progressing disease or for those who are receivin g medical therapy to restore bone mass. Reviewed by: Troy Valadez MD on 12/09/2022 9:40 AM PDT Approved by: Troy Valadez MD on 12/09/2022 9:40 AM PDT Station ID: [id number]
== END 2022-12-09 08:24 | disposition home or self-care (01) ==
LOC: DI 08:23
PROVIDERS: ATTEND Internal Medicine
DX: Z78.0 Asymptomatic menopausal state (principal); M85.80 Other specified disorders of bone density and structure, unspecified site

== ENCOUNTER 2022-12-13 09:25 | Outpatient (CLI) | payer OTHER ==
--- NOTE | 2022-12-16 12:00 | Mammography Report ---
BILATERAL DIGITAL SCREENING MAMMOGRAM 3D/2D: 12/13/2022 CLINICAL: Routine screening. Comparison is made to exams dated: 11/26/2018 mammogram, 12/22/2014 mammogram, 12/14/2013 mammogram, and 11/23/2013 mammogram - [facility]. Both breasts are heterogeneously dense, which may obscure small masses (category c / 51-75% glandular tissue). No significant masses, calcifications, or other findings are seen in either breast. There has been no significant interval change. IMPRESSION: NEGATIVE There is no mammographic evidence of malignancy. A 1 year screening mammogram is recommended. Based on the Tyrer Cuzick model (a risk assessment model) the patients lifetime risk is 11.5% and he r 10 year risk is 5.4%. According to the ACR, ACS, and NCCN guidelines, an annual breast MRI exam william ng with mammogram is recommended if the patients lifetime risk is 20% or greater. This exam was interpreted at Station ID: [id number]. NOTE: For mammograms, a report in lay terms will be sent to the patient. Approximately 15% of breast malignancies will not be visualized mammographically. In the management of a palpable breast mass, a negative mammogram must not discourage biopsy of a clinically suspicious lesion. Electronically Signed By: Troy tony/ilene:12/13/2022 15:14:10 letter sent: No_Letter ACR BI-RADS Category 1: Negative 3341F PARENCHYMAL PATTERN: (D) - The breast(s) demonstrate(s) heterogeneously dense fibroglandular prema morillo. BI-RADS CATEGORY: (1) - 1 Mammogram [id number] 1 year screening LATERALITY: (B)
== END 2022-12-13 09:26 | disposition home or self-care (01) ==
LOC: DI 09:25
PROVIDERS: ATTEND Internal Medicine
DX: Z12.31 Encounter for screening mammogram for malignant neoplasm of breast (principal)

== ENCOUNTER 2023-03-07 11:42 | Outpatient (CLI) | payer OTHER ==
[2023-03-07 12:52] LABS: CREATININE 0.5 mg/dL (0.6-1.3)
[2023-03-07] MEDS ORDERED: iohexoL-300 100 ML VIAL IVP ONE (13:24)
--- NOTE | 2023-03-07 14:49 | CT Report ---
PROCEDURE: IVP INDICATIONS: KIDNEY CYST CONTRAST: 140ml omni 300 TECHNIQUE: After the administration of intravenous contrast, 5 mm thick sections acquired from the diaphragms to the symphysis. 5 mm thick coronal and sagittal reformats were acquired. For radiation dose reducti on, the following was used: automated exposure control, adjustment of mA and/or kV according to bhupinder ent size. COMPARISON: CT 06/28/2019 FINDINGS: Image quality: Excellent. Urinary system: Both kidneys are normal in size. No hydronephrosis or nephrolithiasis on pre-contras t images. No significant change in size or appearance of the 7 mm hypoattenuating lesion along the l ateral pole of the right kidney (series 6, image 28). The opacified renal calyces and ureters appear normal, without filling defect. Bladder wall thickness is normal, accounting for underdistention. No calcified bladder stones. No filling defect within the opacified bladder. OTHER Lung bases and heart: Unremarkable. Liver: Fluid attenuating cysts, without internal complexity. Gallbladder and biliary tree: No radiopaque stones or wall thickening. No biliary dilation. Spleen: No splenomegaly. Pancreas: No pancreatic ductal dilation. Adrenals: No adrenal nodule. Bowel and peritoneum: No bowel distension. No pathologic free fluid. Abdominal Lymph nodes: No central or retroperitoneal adenopathy. Vessels: Unremarkable. Reproductive organs: 7.9 cm intramural fibroid along the left side. Additional smaller calcified uter ine fibroids. Pelvic Lymph nodes: Unremarkable. Bones: Grade 1 anterolisthesis of L4 on L5, with opposing endplate sclerosis. Other: None. IMPRESSION: Stable hypoattenuating renal lesion measuring 7 mm compared with 2020. No nephrolithiasis or filling defects within the opacified renal clicking system or ureters. 7.9 cm intramural fibroid. Reviewed by: Al Loera on 03/07/2023 2:47 PM PST Approved by: Al Loera on 03/07/2023 2:47 PM PST Station ID: [id number]
== END 2023-03-07 11:43 | disposition home or self-care (01) ==
LOC: DI 11:42
PROVIDERS: ATTEND Internal Medicine
DX: N28.9 Disorder of kidney and ureter, unspecified (principal); D25.1 Intramural leiomyoma of uterus
CPT/HCPCS: 36415; 74178; 82565; Q9967